=== PATIENT | female | born 1960 | race African-American/Black ===

== ENCOUNTER 2021-11-13 00:25 | Inpatient (IN) | payer MEDICAID ==
[2021-11-13] VITALS (26 sets, daily range): BP systolic 115–174; BP diastolic 61–112
[~2021-11-13] VITALS: Ht 167.6 cm; Wt 111.6 kg
[2021-11-13] MEDS ORDERED: PIPERACILLIN/TAZOBACTAM 3.375GM/50ML PREMIX IV ONE (00:45)
[2021-11-13] MEDS ORDERED: FENTANYL CITRATE/PF 500 MCG in SODIUM CHLORIDE 0.9% 40 ML IV STA (00:45)
[2021-11-13] MEDS ORDERED: VANCOMYCIN 1 G PREMIX 200 ML IV SCH (00:45)
[2021-11-13] MEDS ORDERED: MAGNESIUM 2 G PREMIX 50 ML IV STA (00:54)
[2021-11-13] MEDS ORDERED: ALBUTEROL (0.083%) 2.5MG/3ML NEB HHN STA (00:54)
[2021-11-13] MEDS ORDERED: IPRATROPIUM BROMIDE (0.02%) 0.5MG/2.5ML NEB HHN STA (00:54)
[2021-11-13] MEDS ORDERED: FENTANYL CITRATE 2,500 MCG in SODIUM CHLORIDE 0.9% 200 ML IV PRN (01:00)
[2021-11-13] MEDS ORDERED: METHYLPREDNISOLONE SOD SUCC 125 MG/2 ML VIAL IV ONE (01:00)
[2021-11-13] MEDS ORDERED: PIPERACILLIN/TAZ 3.375G PREMIX 50 ML IV NR (01:00)
[2021-11-13] MEDS ORDERED: SODIUM CHLORIDE 0.9% 1000ML BAG (SEPSIS BOLUS) IV ONE (01:00)
[2021-11-13] MEDS ORDERED: ALBUTEROL (0.083%) 2.5MG/3ML NEB ONE (01:06)
[2021-11-13] MEDS ORDERED: IPRATROPIUM/ALBUTEROL 0.5-3(2.5)MG/3ML NEB ONE (01:06)
[2021-11-13] MEDS: PROPOFOL 10MG/ML 100ML 100 ML IV SCH ×3 (01:06→16:33)
[2021-11-13 01:39] LABS: BG BASE EXCESS -3.4 mmol/L (-2.0-2.0); BG CARBOXYHEMOGLOBIN 0.3 % (0.5-1.5); BG DEOXYHEMOGLOBIN 0.4 % (0.0-5.0); BG FRACTION INSPIRED OXYGEN 100; BG HCO3 ACT 21.8 mmol/L (22.0-26.0); BG METHEMOGLOBIN 0.4 % (0.0-1.5); BG OXYGEN SATURATION 99.6 % (92.0-98.5); BG OXYHEMOGLOBIN 98.9 % (94.0-97.0); BG PCO2 39.4 mmHg (35.0-45.0); BG PO2 480.6 mmHg (75.0-100.0); BG SAMPLE SITE RIGHT RADIAL; BG TOTAL HEMOGLOBIN 10.8 g/dL (12.0-18.0); BG VENT MODE VENT - AC
[2021-11-13 01:48] LABS: BASOPHILS % 1.1 % (0.0-2.0); EOSINOPHILS % 6.2 % (0.0-5.0); HEMATOCRIT. 30.4 % (36.0-48.0); LYMPHOCYTES % 31.8 % (20.0-50.0); MEAN CORPUSCULAR HEMOGLOBIN 30.4 pg (28.0-32.0); MEAN PLATELET VOLUME 7.7 fl (7.4-10.4); MONOCYTES % 10.4 % (2.0-8.0); NEUTROPHILS % 50.5 % (40.0-76.0); PLATELET 226 x1000/uL (130-400); RED BLOOD CELL COUNT 3.31 mill/uL (4.2-5.4); RED CELL DISTRIBUTION WIDTH 14.8 % (11.6-14.6)
[2021-11-13 01:55] LABS: CHLORIDE 108 mEq/L (98-107)
[2021-11-13 01:59] LABS: ETHANOL BLOOD < 10 mg/dL
[2021-11-13] MEDS ORDERED: POTASSIUM CHLORIDE INJ 40 MEQ in DEXT 5% WATER 250 ML IV NR (02:45)
[2021-11-13] MEDS ORDERED: ENOXAPARIN 100MG/ML SYR SUBCUT NR (03:00)
[2021-11-13] MEDS ORDERED: BLOOD SUGAR DIAGNOSTIC STRIP TEST SCH (05:15)
[2021-11-13] MEDS ORDERED: IPRATROPIUM/ALBUTEROL 0.5-3(2.5)MG/3ML NEB HHN SCH (05:15)
[2021-11-13] MEDS ORDERED: ACETAMINOPHEN 325MG TABLET NG PRN (05:15)
[2021-11-13] MEDS ORDERED: ONDANSETRON HCL 4MG/2ML INJ IV PRN (05:15)
[2021-11-13] MEDS ORDERED: LEVOFLOXACIN 500MG PREMIX 100 ML IV SCH ×2 (05:15→06:00)
[2021-11-13] MEDS ORDERED: NICARDIPINE 100 MG in SODIUM CHLORIDE 0.9% 60 ML IV PRN (05:15)
[2021-11-13] MEDS ORDERED: IPRATROPIUM/ALBUTEROL 0.5-3(2.5)MG/3ML NEB NEB PRN (05:15)
[2021-11-13] MEDS ORDERED: DEXTROSE 50% WATER 50ML SYRINGE IV PRN (05:15)
[2021-11-13] MEDS ORDERED: IOHEXOL-350 100 ML BOTTLE ONE ×2 (05:47→12:06)
[2021-11-13] MEDS ORDERED: INSULIN LISPRO 100 UNITS/ML SUBCUT SCH (08:20)
[2021-11-13] MEDS ORDERED: CALCIUM CHLORIDE 1GM/10ML SYR IV ONE (08:39)
[2021-11-13] MEDS ORDERED: SODIUM BICARBONATE 8.4% 1 MEQ/ML 50ML SYR IV ONE (08:39)
[2021-11-13] MEDS ORDERED: EPINEPHRINE 0.1MG/ML (1:10,000) 10ML SYR ONE (08:39)
[2021-11-13] MEDS ORDERED: PANTOPRAZOLE SODIUM 40 MG/VIAL IV SCH (09:00)
[2021-11-13] MEDS ORDERED: LIDOCAINE HCL 1% 20ML VIAL (Pyxis) INJ ONE ×2 (09:03→09:43)
[2021-11-13 09:06] LABS: CLARITY URINE CLEAR (CLEAR); COLOR URINE YELLOW (YELLOW); KETONES URINE NEGATIVE (NEGATIVE); LEUKOCYTE ESTERASE URINE NEGATIVE (NEGATIVE); NITRITE URINE NEGATIVE (NEGATIVE); OCCULT BLOOD URINE 2+ (NEGATIVE); PH URINE 6.5 (4.5-8.0); PROTEIN URINE TRACE (NEGATIVE); SPECIFIC GRAVITY URINE 1.017 (1.005-1.030); UROBILINOGEN URINE 0.2 E.U./dL (0.2-1.0)
[2021-11-13 09:15] LABS: *AMPHETAMINES SCREEN URINE NEGATIVE (NEGATIVE); *BARBITURATES SCREEN URINE NEGATIVE (NEGATIVE); *BENZODIAZEPINES SCREEN URINE NEGATIVE (NEGATIVE); CANNABINOID URINE SCREEN NEGATIVE (NEGATIVE); METHADONE URINE SCREEN NEGATIVE (NEGATIVE)
[2021-11-13 09:16] LABS: *COCAINE SCREEN URINE NEGATIVE (NEGATIVE); OPIATES URINE SCREEN NEGATIVE (NEGATIVE); PHENCYCLIDINE URINE SCREEN NEGATIVE (NEGATIVE)
[2021-11-13] MEDS ORDERED: FENTANYL CITRATE/PF 2,500 MCG in SODIUM CHLORIDE 0.9% 200 ML IV PRN (10:00)
[2021-11-13] MEDS: METHYLPREDNISOLONE SOD SUCC 125 MG/2 ML VIAL IV SCH ×3 (10:11→21:15)
[2021-11-13] MEDS: INSULIN LISPRO 100 UNITS/ML SUBCUT SCH ×2 (12:00→18:00)
[2021-11-13] MEDS: LORATADINE 10MG TABLET PO SCH (12:12)
[2021-11-13] MEDS: FAMOTIDINE 20MG/2ML VIAL IV SCH ×2 (12:12→21:16)
[2021-11-13] MEDS: RITONAVIR 100 MG TABLET NG SCH ×2 (12:12→16:10)
[2021-11-13] MEDS: LOSARTAN POTASSIUM 100 MG TABLET NG SCH (12:12)
[2021-11-13] MEDS: BLOOD SUGAR DIAGNOSTIC STRIP TEST SCH ×2 (12:39→18:30)
[2021-11-13] MEDS ORDERED: PNEUMOCOCCAL 23-VAL P-SAC VAC 0.5 ML IM ONE (15:00)
[2021-11-13 15:45] LABS: HEMATOCRIT. 31.7 % (36.0-48.0); HEMOGLOBIN. 10.6 g/dL (12.0-16.0); MEAN CORPUSCULAR HEMOGLOBIN 30.7 pg (28.0-32.0); MEAN CORPUSCULAR VOLUME 91.5 fL (81.0-99.0); MEAN PLATELET VOLUME 9.1 fl (7.4-10.4); PLATELET 200 x1000/uL (130-400); RED BLOOD CELL COUNT 3.47 mill/uL (4.2-5.4)
[2021-11-13 15:59] LABS: CHLORIDE 106 mEq/L (98-107)
[2021-11-13] MEDS: ATENOLOL 50 MG TABLET NG SCH (16:10)
[2021-11-13] MEDS ORDERED: POTASSIUM CHLORIDE 20MEQ/PACKET PO NR (16:45)
[2021-11-13] MEDS: FENTANYL CITRATE/PF 2,500 MCG in SODIUM CHLORIDE 0.9% 200 ML IV PRN (17:23)
[2021-11-13 17:37] LABS: PLATELET ESTIMATE NORMAL
[2021-11-13] MEDS ORDERED: POTASSIUM PHOS,M-BASIC-D-BASIC 20 MMOL in DEXT 5% WATER 243.3333 ML IV NR (18:30)
[2021-11-13] MEDS ORDERED: LORAZEPAM 2MG/ML CPJ IV PRN (19:00)
[2021-11-13] MEDS: ENOXAPARIN 30MG/0.3ML SYR SUBCUT SCH (21:15)
[2021-11-13] MEDS: PROPOFOL 10MG/ML 100ML 100 ML IV PRN (21:17)
[2021-11-13] MEDS: CLONIDINE 0.1MG TABLET NG PRN (21:18)
[2021-11-13] MEDS: IPRATROPIUM/ALBUTEROL 0.5-3(2.5)MG/3ML NEB HHN SCH (21:37)
[2021-11-14] VITALS (76 sets, daily range): BP systolic 118–165; BP diastolic 69–105
[2021-11-14] MEDS: BLOOD SUGAR DIAGNOSTIC STRIP TEST SCH ×5 (00:33→23:52)
[2021-11-14] MEDS: IPRATROPIUM/ALBUTEROL 0.5-3(2.5)MG/3ML NEB HHN SCH ×7 (00:46→23:40)
[2021-11-14] MEDS: PROPOFOL 10MG/ML 100ML 100 ML IV PRN ×4 (02:25→20:19)
[2021-11-14] MEDS: CLONIDINE 0.1MG TABLET NG PRN (03:49)
[2021-11-14] MEDS ORDERED: NICARDIPINE 100 MG in SODIUM CHLORIDE 0.9% 60 ML IV PRN (05:00)
[2021-11-14] MEDS: METHYLPREDNISOLONE SOD SUCC 125 MG/2 ML VIAL IV SCH ×3 (05:02→21:55)
[2021-11-14] MEDS: INSULIN LISPRO 100 UNITS/ML SUBCUT SCH ×4 (05:02→18:00)
[2021-11-14 05:58] LABS: CHLORIDE 108 mEq/L (98-107)
[2021-11-14 06:09] LABS: PHOSPHORUS 4.1 mg/dL (2.5-4.9)
[2021-11-14] MEDS: FENTANYL CITRATE/PF 2,500 MCG in SODIUM CHLORIDE 0.9% 200 ML IV PRN ×2 (06:54→21:57)
[2021-11-14] MEDS ORDERED: ETOMIDATE 2MG/ML 10ML VIAL IV ONE (08:06)
[2021-11-14] MEDS ORDERED: SUCCINYLCHOLINE CHLORIDE 200MG/10ML IV ONE (08:06)
[2021-11-14] MEDS: ENOXAPARIN 30MG/0.3ML SYR SUBCUT SCH ×2 (08:21→20:45)
[2021-11-14] MEDS: FAMOTIDINE 20MG/2ML VIAL IV SCH ×2 (08:21→20:45)
[2021-11-14] MEDS: LORATADINE 10MG TABLET PO SCH (08:21)
[2021-11-14] MEDS: LOSARTAN POTASSIUM 100 MG TABLET NG SCH (08:21)
[2021-11-14] MEDS: ATENOLOL 50 MG TABLET NG SCH (08:21)
[2021-11-14] MEDS: LEVOFLOXACIN 500MG PREMIX 100 ML IV SCH (10:31)
[2021-11-14] MEDS: DEXT 5%/0.45% NACL 1000ML 1,000 ML IV SCH ×2 (10:32→20:45)
[2021-11-14 10:39] LABS: BG BASE EXCESS -3.7 mmol/L (-2.0-2.0); BG CARBOXYHEMOGLOBIN 0.3 % (0.5-1.5); BG DEOXYHEMOGLOBIN 1.2 % (0.0-5.0); BG FRACTION INSPIRED OXYGEN 30; BG HCO3 ACT 18.9 mmol/L (22.0-26.0); BG METHEMOGLOBIN 0.2 % (0.0-1.5); BG OXYGEN SATURATION 98.8 % (92.0-98.5); BG OXYHEMOGLOBIN 98.3 % (94.0-97.0); BG PCO2 27.1 mmHg (35.0-45.0); BG PEEP (cmH2O) 0 cmH2O; BG PH 7.462 (7.350-7.450); BG PO2 141.5 mmHg (75.0-100.0); BG SAMPLE SITE RIGHT RADIAL; BG TOTAL HEMOGLOBIN 11.2 g/dL (12.0-18.0); BG TOTAL RESPIRATORY RATE 20 b/min; BG VENT MODE PRVC
[2021-11-14] MEDS: RITONAVIR 100 MG TABLET NG SCH ×2 (11:27→17:59)
[2021-11-14] MEDS ORDERED: NON FORMULARY PATIENT HOME MED PO SCH ×3 (13:15)
[2021-11-14] MEDS: JULUCA PO SCH (15:31)
[2021-11-14] MEDS: LACOSAMIDE 100 MG TABLET PO SCH (17:59)
[2021-11-14] MEDS: PREZISTA 600 MG PO SCH (18:00)
[2021-11-14] MEDS: TOPIRAMATE 25MG TABLET PO SCH (18:00)
[2021-11-15] VITALS (94 sets, daily range): BP systolic 109–159; BP diastolic 64–100
[2021-11-15] MEDS: INSULIN LISPRO 100 UNITS/ML SUBCUT SCH ×6 (00:06→23:44)
[2021-11-15] MEDS: PROPOFOL 10MG/ML 100ML 100 ML IV PRN ×3 (00:54→10:19)
[2021-11-15] MEDS: IPRATROPIUM/ALBUTEROL 0.5-3(2.5)MG/3ML NEB HHN SCH ×5 (03:05→21:42)
[2021-11-15 05:34] LABS: HEMATOCRIT. 33.3 % (36.0-48.0); HEMOGLOBIN. 10.7 g/dL (12.0-16.0); MEAN CORPUSCULAR HEMOGLOBIN 29.4 pg (28.0-32.0); MEAN CORPUSCULAR VOLUME 91.5 fL (81.0-99.0); MEAN PLATELET VOLUME 8.2 fl (7.4-10.4); PLATELET 236 x1000/uL (130-400); RED BLOOD CELL COUNT 3.64 mill/uL (4.2-5.4); RED CELL DISTRIBUTION WIDTH 15.2 % (11.6-14.6)
[2021-11-15 05:39] LABS: CHLORIDE 115 mEq/L (98-107)
[2021-11-15 05:47] LABS: PROTHROMBIN TIME 10.6 sec (9.6-11.0)
[2021-11-15] MEDS: METHYLPREDNISOLONE SOD SUCC 125 MG/2 ML VIAL IV SCH ×3 (06:57→22:01)
[2021-11-15] MEDS: DEXT 5%/0.45% NACL 1000ML 1,000 ML IV SCH ×2 (07:15→13:48)
[2021-11-15] MEDS: RITONAVIR 100 MG TABLET NG SCH ×2 (09:00→11:57)
[2021-11-15] MEDS: TOPIRAMATE 25MG TABLET PO SCH ×2 (09:18→17:00)
[2021-11-15] MEDS: LOSARTAN POTASSIUM 100 MG TABLET NG SCH (09:18)
[2021-11-15] MEDS: LACOSAMIDE 100 MG TABLET PO SCH ×2 (09:18→17:00)
[2021-11-15] MEDS: ATENOLOL 50 MG TABLET NG SCH (09:19)
[2021-11-15] MEDS: FAMOTIDINE 20MG/2ML VIAL IV SCH ×2 (09:19→22:03)
[2021-11-15] MEDS: JULUCA PO SCH (09:19)
[2021-11-15] MEDS: PREZISTA 600 MG PO SCH ×2 (09:20→17:00)
[2021-11-15] MEDS: ENOXAPARIN 30MG/0.3ML SYR SUBCUT SCH ×2 (09:26→22:02)
[2021-11-15] MEDS: LORATADINE 10MG TABLET PO SCH (09:26)
[2021-11-15] MEDS: LEVOFLOXACIN 500MG PREMIX 100 ML IV SCH (09:27)
[2021-11-15 09:30] LABS: BG BASE EXCESS -3.4 mmol/L (-2.0-2.0); BG CARBOXYHEMOGLOBIN 0.3 % (0.5-1.5); BG DEOXYHEMOGLOBIN 1.4 % (0.0-5.0); BG FRACTION INSPIRED OXYGEN 30; BG HCO3 ACT 19.4 mmol/L (22.0-26.0); BG METHEMOGLOBIN 0.1 % (0.0-1.5); BG OXYGEN SATURATION 98.6 % (92.0-98.5); BG OXYHEMOGLOBIN 98.2 % (94.0-97.0); BG PCO2 27.9 mmHg (35.0-45.0); BG PEEP (cmH2O) 0 cmH2O; BG PO2 133.5 mmHg (75.0-100.0); BG SAMPLE SITE RIGHT RADIAL; BG TOTAL HEMOGLOBIN 11.1 g/dL (12.0-18.0); BG VENT MODE PRVC
[2021-11-15] MEDS: FENTANYL CITRATE/PF 2,500 MCG in SODIUM CHLORIDE 0.9% 200 ML IV PRN ×2 (10:19→23:47)
[2021-11-15] MEDS: BLOOD SUGAR DIAGNOSTIC STRIP TEST SCH ×2 (11:44→23:41)
[2021-11-15 15:40] LABS: PLATELET ESTIMATE NORMAL
[2021-11-15] MEDS: MIDAZOLAM HCL 100 MG in SODIUM CHLORIDE 0.9% 80 ML IV PRN (17:04)
[2021-11-16] VITALS (90 sets, daily range): BP systolic 113–155; BP diastolic 74–107
[2021-11-16] MEDS: DEXT 5%/0.45% NACL 1000ML 1,000 ML IV SCH ×3 (00:03→22:42)
[2021-11-16] MEDS: IPRATROPIUM/ALBUTEROL 0.5-3(2.5)MG/3ML NEB HHN SCH ×6 (01:45→20:34)
[2021-11-16] MEDS: MIDAZOLAM HCL 100 MG in SODIUM CHLORIDE 0.9% 80 ML IV PRN (04:39)
[2021-11-16] MEDS: INSULIN LISPRO 100 UNITS/ML SUBCUT SCH ×3 (06:00→17:42)
[2021-11-16] MEDS: BLOOD SUGAR DIAGNOSTIC STRIP TEST SCH ×3 (06:00→17:42)
[2021-11-16] MEDS: METHYLPREDNISOLONE SOD SUCC 125 MG/2 ML VIAL IV SCH ×3 (06:53→22:23)
[2021-11-16] MEDS: FAMOTIDINE 20MG/2ML VIAL IV SCH ×2 (08:13→22:23)
[2021-11-16] MEDS: PREZISTA 600 MG PO SCH ×2 (08:13→17:17)
[2021-11-16] MEDS: JULUCA PO SCH (08:13)
[2021-11-16] MEDS: LORATADINE 10MG TABLET PO SCH (08:14)
[2021-11-16] MEDS: TOPIRAMATE 25MG TABLET PO SCH ×2 (08:14→17:17)
[2021-11-16] MEDS: LOSARTAN POTASSIUM 100 MG TABLET NG SCH (08:14)
[2021-11-16] MEDS: ATENOLOL 50 MG TABLET NG SCH (08:16)
[2021-11-16] MEDS: RITONAVIR 100 MG TABLET NG SCH ×2 (08:20→17:17)
[2021-11-16] MEDS: LACOSAMIDE 100 MG TABLET PO SCH ×2 (08:26→17:17)
[2021-11-16] MEDS: ENOXAPARIN 30MG/0.3ML SYR SUBCUT SCH ×2 (08:26→22:24)
[2021-11-16 08:38] LABS: BG CARBOXYHEMOGLOBIN 0.2 % (0.5-1.5); BG DEOXYHEMOGLOBIN 1.4 % (0.0-5.0); BG FRACTION INSPIRED OXYGEN 30; BG HCO3 ACT 19.2 mmol/L (22.0-26.0); BG METHEMOGLOBIN 0.3 % (0.0-1.5); BG OXYGEN SATURATION 98.6 % (92.0-98.5); BG OXYHEMOGLOBIN 98.1 % (94.0-97.0); BG PCO2 29.3 mmHg (35.0-45.0); BG PH 7.435 (7.350-7.450); BG TOTAL HEMOGLOBIN 11.1 g/dL (12.0-18.0); BG VENT MODE PRVC
[2021-11-16 08:59] LABS: CHLORIDE 119 mEq/L (98-107)
[2021-11-16 09:01] LABS: HEMATOCRIT. 32.9 % (36.0-48.0); HEMOGLOBIN. 10.8 g/dL (12.0-16.0); MEAN CORPUSCULAR HEMOGLOBIN 30.5 pg (28.0-32.0); MEAN CORPUSCULAR VOLUME 92.9 fL (81.0-99.0); MEAN PLATELET VOLUME 8.3 fl (7.4-10.4); PLATELET 222 x1000/uL (130-400); RED BLOOD CELL COUNT 3.54 mill/uL (4.2-5.4); RED CELL DISTRIBUTION WIDTH 15.4 % (11.6-14.6)
[2021-11-16] MEDS: LEVOFLOXACIN 500MG PREMIX 100 ML IV SCH (09:38)
[2021-11-16 09:39] LABS: PLATELET ESTIMATE NORMAL
[2021-11-17] VITALS (81 sets, daily range): BP systolic 78–172; BP diastolic 36–103
[2021-11-17] MEDS: IPRATROPIUM/ALBUTEROL 0.5-3(2.5)MG/3ML NEB HHN SCH ×6 (00:20→20:16)
[2021-11-17] MEDS: HYDRALAZINE 20MG/ML VIAL IV PRN (01:59)
[2021-11-17] MEDS: METHYLPREDNISOLONE SOD SUCC 125 MG/2 ML VIAL IV SCH ×3 (05:50→21:18)
[2021-11-17] MEDS: BLOOD SUGAR DIAGNOSTIC STRIP TEST SCH ×5 (06:00→23:13)
[2021-11-17] MEDS: INSULIN LISPRO 100 UNITS/ML SUBCUT SCH ×5 (06:00→23:13)
[2021-11-17 06:20] LABS: CHLORIDE 118 mEq/L (98-107); HEMATOCRIT. 34.9 % (36.0-48.0); HEMOGLOBIN. 11.2 g/dL (12.0-16.0); MEAN CORPUSCULAR HEMOGLOBIN 29.7 pg (28.0-32.0); MEAN CORPUSCULAR VOLUME 92.7 fL (81.0-99.0); MEAN PLATELET VOLUME 8.3 fl (7.4-10.4); PLATELET 244 x1000/uL (130-400); RED BLOOD CELL COUNT 3.77 mill/uL (4.2-5.4); RED CELL DISTRIBUTION WIDTH 15.6 % (11.6-14.6)
[2021-11-17 08:36] LABS: BG BASE EXCESS -6.7 mmol/L (-2.0-2.0); BG CARBOXYHEMOGLOBIN 0.3 % (0.5-1.5); BG DEOXYHEMOGLOBIN 1.2 % (0.0-5.0); BG FRACTION INSPIRED OXYGEN 30; BG HCO3 ACT 19.7 mmol/L (22.0-26.0); BG METHEMOGLOBIN 0.2 % (0.0-1.5); BG OXYGEN SATURATION 98.8 % (92.0-98.5); BG OXYHEMOGLOBIN 98.3 % (94.0-97.0); BG PCO2 42.7 mmHg (35.0-45.0); BG PH 7.281 (7.350-7.450); BG PO2 155.3 mmHg (75.0-100.0); BG SAMPLE SITE RIGHT RADIAL; BG TOTAL RESPIRATORY RATE 16 b/min; BG VENT MODE VENT- PRVC
[2021-11-17] MEDS: ENOXAPARIN 30MG/0.3ML SYR SUBCUT SCH ×2 (08:55→20:12)
[2021-11-17] MEDS: TOPIRAMATE 25MG TABLET PO SCH ×2 (08:55→16:52)
[2021-11-17] MEDS: LACOSAMIDE 100 MG TABLET PO SCH ×2 (08:55→16:52)
[2021-11-17] MEDS: FAMOTIDINE 20MG/2ML VIAL IV SCH ×2 (08:56→20:12)
[2021-11-17] MEDS: RITONAVIR 100 MG TABLET NG SCH ×2 (08:56→16:52)
[2021-11-17] MEDS: LORATADINE 10MG TABLET PO SCH (08:56)
[2021-11-17] MEDS: ATENOLOL 50 MG TABLET NG SCH (08:57)
[2021-11-17] MEDS: JULUCA PO SCH (08:57)
[2021-11-17] MEDS: PREZISTA 600 MG PO SCH ×2 (08:57→16:52)
[2021-11-17] MEDS: DEXT 5%/0.45% NACL 1000ML 1,000 ML IV SCH (08:58)
[2021-11-17] MEDS: LOSARTAN POTASSIUM 100 MG TABLET NG SCH (08:58)
[2021-11-17] MEDS ORDERED: POTASSIUM CHLORIDE 20MEQ/PACKET PO NR (09:00)
[2021-11-17 10:09] LABS: ABSOLUTE LYMPHOCYTES 0.5 x10E3/uL (0.7-3.1); ABSOLUTE MONOCYTES 0.4 x10E3/uL (0.1-0.9); ABSOLUTE NEUTROPHILS 7.8 x10E3/uL (1.4-7.0); BASOPHILS 0 % (Not Estab.); HEMATOCRIT 33.3 % (34.0-46.6); HEMOGLOBIN 10.7 g/dL (11.1-15.9); IMMATURE GRANULOCYTES 1 % (Not Estab.); IMMATURE GRANULOCYTES ABSOLUTE 0.1 x10E3/uL (0.0-0.1); LYMPHOCYTES 5 % (Not Estab.); MEAN CORPUSCULAR HEMOGLOBIN 30.2 pg (26.6-33.0); MEAN CORPUSCULAR HGB CONC. 32.1 g/dL (31.5-35.7); MEAN CORPUSCULAR VOLUME 94 fL (79-97); MONOCYTES 5 % (Not Estab.); NEUTROPHILS 89 % (Not Estab.); PLATELETS 229 x10E3/uL (150-450); RBC 3.54 x10E6/uL (3.77-5.28); RED CELL DISTRIBUTION WIDTH 13.3 % (11.7-15.4); WBC 8.7 x10E3/uL (3.4-10.8)
[2021-11-17] MEDS: LEVOFLOXACIN 500MG PREMIX 100 ML IV SCH (10:46)
[2021-11-17 13:06] LABS: % CD 3 POS. LYMPHOCYTES 51.4 % (57.5-86.2); % CD 4 POS. LYMPHOCYTES 28.2 % (30.8-58.5); % CD 8 POS. LYMPH 22.5 % (12.0-35.5); ABSOLUTE CD 3 257 /uL (622-2402); ABSOLUTE CD 4 HELPER 141 /uL (359-1519); ABSOLUTE CD 8 SUPPRESSOR 113 /uL (109-897); CD4/CD8 RATIO 1.25 (0.92-3.72)
[2021-11-17] MEDS: CITRIC ACID/SODIUM CITRATE SOLN 15ML UDC NG SCH ×2 (13:38→16:52)
[2021-11-17] MEDS: MIDODRINE HCL 5MG TABLET PO SCH ×2 (13:39→21:18)
[2021-11-17] MEDS ORDERED: NOREPINEPHRINE 32 MG in DEXT 5% WATER 218 ML IV PRN (14:00)
[2021-11-17 14:13] LABS: PLATELET ESTIMATE NORMAL
[2021-11-17 15:14] LABS: BG BASE EXCESS -7.8 mmol/L (-2.0-2.0); BG CARBOXYHEMOGLOBIN 0.3 % (0.5-1.5); BG DEOXYHEMOGLOBIN 2.7 % (0.0-5.0); BG FRACTION INSPIRED OXYGEN 30; BG HCO3 ACT 19.7 mmol/L (22.0-26.0); BG METHEMOGLOBIN 0.3 % (0.0-1.5); BG OXYGEN SATURATION 97.3 % (92.0-98.5); BG OXYHEMOGLOBIN 96.7 % (94.0-97.0); BG PCO2 47.8 mmHg (35.0-45.0); BG PH 7.232 (7.350-7.450); BG PO2 109.1 mmHg (75.0-100.0); BG SAMPLE SITE RIGHT RADIAL; BG TOTAL RESPIRATORY RATE 12 b/min; BG VENT MODE VENT - SIMV
[2021-11-17] MEDS ORDERED: SODIUM BICARBONATE 8.4% 1 MEQ/ML 50ML SYR IV NR (15:15)
[2021-11-17 16:10] LABS: CLARITY URINE CLOUDY (CLEAR); COLOR URINE DARK YELLOW (YELLOW); KETONES URINE NEGATIVE (NEGATIVE); LEUKOCYTE ESTERASE URINE TRACE (NEGATIVE); NITRITE URINE NEGATIVE (NEGATIVE); OCCULT BLOOD URINE 1+ (NEGATIVE); PH URINE 5.5 (4.5-8.0); PROTEIN URINE 2+ (NEGATIVE); SPECIFIC GRAVITY URINE 1.021 (1.005-1.030); UROBILINOGEN URINE 0.2 E.U./dL (0.2-1.0)
[2021-11-17] MEDS: SODIUM BICARBONATE 100 MEQ in SODIUM CHLORIDE 0.45% 1,000 ML IV SCH (16:52)
[2021-11-17] MEDS ORDERED: SULFAMETHOXAZOLE/TRIMETHOPRIM 200-40 MG/5ML 5ML ORAL SYR PO SCH (20:00)
[2021-11-17] MEDS ORDERED: VANCOMYCIN 1500MG in DEXTROSE 5% WATER 250ML IV NR (20:00)
[2021-11-17] MEDS: MEROPENEM 1,000 MG in SODIUM CHLORIDE 0.9% 100 ML IV SCH (20:12)
[2021-11-18] VITALS (66 sets, daily range): BP systolic 86–182; BP diastolic 53–106
[2021-11-18] MEDS: IPRATROPIUM/ALBUTEROL 0.5-3(2.5)MG/3ML NEB HHN SCH ×6 (00:30→20:41)
[2021-11-18] MEDS: SODIUM BICARBONATE 100 MEQ in SODIUM CHLORIDE 0.45% 1,000 ML IV SCH ×2 (03:00→14:57)
[2021-11-18] MEDS: BLOOD SUGAR DIAGNOSTIC STRIP TEST SCH ×4 (05:01→23:19)
[2021-11-18] MEDS: INSULIN LISPRO 100 UNITS/ML SUBCUT SCH ×4 (05:02→23:19)
[2021-11-18] MEDS: METHYLPREDNISOLONE SOD SUCC 125 MG/2 ML VIAL IV SCH ×3 (05:19→21:32)
[2021-11-18] MEDS: MIDODRINE HCL 5MG TABLET PO SCH ×2 (05:19→14:57)
[2021-11-18 06:18] LABS: HEMOGLOBIN. 10.9 g/dL (12.0-16.0); MEAN CORPUSCULAR HEMOGLOBIN 30.6 pg (28.0-32.0); MEAN CORPUSCULAR VOLUME 92.9 fL (81.0-99.0); MEAN PLATELET VOLUME 8.4 fl (7.4-10.4); PLATELET 241 x1000/uL (130-400); RED BLOOD CELL COUNT 3.56 mill/uL (4.2-5.4); RED CELL DISTRIBUTION WIDTH 15.7 % (11.6-14.6)
[2021-11-18 06:24] LABS: CHLORIDE 113 mEq/L (98-107)
[2021-11-18 06:31] LABS: PHOSPHORUS 5.2 mg/dL (2.5-4.9)
[2021-11-18] MEDS ORDERED: VANCOMYCIN 750 MG PREMIX 150 ML IV SCH (08:00)
[2021-11-18 08:26] LABS: BG BASE EXCESS -4.5 mmol/L (-2.0-2.0); BG CARBOXYHEMOGLOBIN 0.3 % (0.5-1.5); BG DEOXYHEMOGLOBIN 2.3 % (0.0-5.0); BG FRACTION INSPIRED OXYGEN 30; BG HCO3 ACT 21.2 mmol/L (22.0-26.0); BG METHEMOGLOBIN 0.1 % (0.0-1.5); BG OXYGEN SATURATION 97.7 % (92.0-98.5); BG OXYHEMOGLOBIN 97.3 % (94.0-97.0); BG PCO2 41.7 mmHg (35.0-45.0); BG PH 7.324 (7.350-7.450); BG PO2 106.7 mmHg (75.0-100.0); BG SAMPLE SITE RIGHT RADIAL; BG TOTAL HEMOGLOBIN 10.7 g/dL (12.0-18.0); BG VENT MODE VENT - SIMV
[2021-11-18] MEDS: LORATADINE 10MG TABLET PO SCH (09:00)
[2021-11-18] MEDS: TOPIRAMATE 25MG TABLET PO SCH ×2 (09:00→17:00)
[2021-11-18] MEDS: MEROPENEM 1,000 MG in SODIUM CHLORIDE 0.9% 100 ML IV SCH ×2 (11:26→11:27)
[2021-11-18] MEDS: FAMOTIDINE 20MG/2ML VIAL IV SCH (11:29)
[2021-11-18] MEDS: CITRIC ACID/SODIUM CITRATE SOLN 15ML UDC NG SCH ×2 (11:29→14:58)
[2021-11-18] MEDS: LOSARTAN POTASSIUM 100 MG TABLET NG SCH (11:30)
[2021-11-18] MEDS: ENOXAPARIN 30MG/0.3ML SYR SUBCUT SCH (11:31)
[2021-11-18] MEDS: RITONAVIR 100 MG TABLET NG SCH ×2 (11:33→18:30)
[2021-11-18] MEDS: PREZISTA 600 MG PO SCH ×2 (11:33→18:29)
[2021-11-18] MEDS: JULUCA PO SCH (11:33)
[2021-11-18 11:35] LABS: PLATELET ESTIMATE NORMAL
[2021-11-18] MEDS: ATENOLOL 50 MG TABLET NG SCH (11:48)
[2021-11-18] MEDS: LACOSAMIDE 100 MG TABLET PO SCH ×2 (11:48→18:30)
[2021-11-19] VITALS (40 sets, daily range): BP systolic 118–191; BP diastolic 59–133
[2021-11-19] MEDS: IPRATROPIUM/ALBUTEROL 0.5-3(2.5)MG/3ML NEB HHN SCH ×6 (00:44→20:03)
[2021-11-19] MEDS: SODIUM BICARBONATE 100 MEQ in SODIUM CHLORIDE 0.45% 1,000 ML IV SCH (01:15)
[2021-11-19] MEDS: CLONIDINE 0.1MG TABLET NG PRN ×2 (01:36→22:33)
[2021-11-19] MEDS: HYDRALAZINE 20MG/ML VIAL IV PRN ×3 (03:14→19:48)
[2021-11-19] MEDS: BLOOD SUGAR DIAGNOSTIC STRIP TEST SCH ×4 (05:43→23:38)
[2021-11-19] MEDS: METHYLPREDNISOLONE SOD SUCC 125 MG/2 ML VIAL IV SCH ×3 (05:43→21:55)
[2021-11-19] MEDS: INSULIN LISPRO 100 UNITS/ML SUBCUT SCH ×4 (05:43→23:44)
[2021-11-19] MEDS: ATOVAQUONE 750 MG/5 ML ORAL.SUSP NG SCH (08:20)
[2021-11-19 08:33] LABS: BG BASE EXCESS 4.5 mmol/L (-2.0-2.0); BG DEOXYHEMOGLOBIN 2.4 % (0.0-5.0); BG FRACTION INSPIRED OXYGEN 30; BG HCO3 ACT 29.1 mmol/L (22.0-26.0); BG METHEMOGLOBIN 0.4 % (0.0-1.5); BG OXYGEN SATURATION 97.6 % (92.0-98.5); BG OXYHEMOGLOBIN 97.2 % (94.0-97.0); BG PCO2 43.8 mmHg (35.0-45.0); BG PH 7.441 (7.350-7.450); BG PO2 100.7 mmHg (75.0-100.0); BG SAMPLE SITE RIGHT RADIAL; BG TOTAL HEMOGLOBIN 11.9 g/dL (12.0-18.0); BG VENT MODE VENT - SIMV
[2021-11-19] MEDS: MEROPENEM 1,000 MG in SODIUM CHLORIDE 0.9% 100 ML IV SCH ×2 (09:13→21:55)
[2021-11-19] MEDS: TOPIRAMATE 25MG TABLET PO SCH ×2 (09:14→16:54)
[2021-11-19] MEDS: ATENOLOL 50 MG TABLET NG SCH (09:15)
[2021-11-19] MEDS: ENOXAPARIN 40MG/0.4ML SYR SUBCUT SCH (09:15)
[2021-11-19] MEDS: LORATADINE 10MG TABLET PO SCH (09:15)
[2021-11-19] MEDS: FAMOTIDINE 20MG/2ML VIAL IV SCH (09:29)
[2021-11-19] MEDS: LACOSAMIDE 100 MG TABLET PO SCH ×2 (09:29→16:55)
[2021-11-19] MEDS: PREZISTA 600 MG PO SCH ×2 (09:49→16:54)
[2021-11-19] MEDS: RITONAVIR 100 MG TABLET NG SCH ×2 (09:49→16:55)
[2021-11-19] MEDS: JULUCA PO SCH (09:49)
[2021-11-19] MEDS ORDERED: VANCOMYCIN 1 G PREMIX 200 ML IV NR (10:00)
[2021-11-19 13:08] LABS: BG BASE EXCESS 3.1 mmol/L (-2.0-2.0); BG CARBOXYHEMOGLOBIN 0.3 % (0.5-1.5); BG DEOXYHEMOGLOBIN 3.6 % (0.0-5.0); BG FRACTION INSPIRED OXYGEN 30; BG HCO3 ACT 27.2 mmol/L (22.0-26.0); BG METHEMOGLOBIN 0.2 % (0.0-1.5); BG OXYGEN SATURATION 96.4 % (92.0-98.5); BG OXYHEMOGLOBIN 95.9 % (94.0-97.0); BG PCO2 39.6 mmHg (35.0-45.0); BG PH 7.454 (7.350-7.450); BG SAMPLE SITE RIGHT RADIAL; BG TOTAL HEMOGLOBIN 11.8 g/dL (12.0-18.0); BG VENT MODE VENT - CPAP
[2021-11-19] MEDS ORDERED: SODIUM POLYSTYRENE SULFONATE 15 G/60 ML BOT PO SCH (14:00)
[2021-11-19] MEDS: SODIUM CHLORIDE 0.45% 1,000 ML IV SCH ×2 (14:20→16:12)
[2021-11-20] VITALS (54 sets, daily range): BP systolic 80–188; BP diastolic 52–108
[2021-11-20] MEDS: IPRATROPIUM/ALBUTEROL 0.5-3(2.5)MG/3ML NEB HHN SCH ×6 (00:18→20:20)
[2021-11-20] MEDS: SODIUM CHLORIDE 0.45% 1,000 ML IV SCH ×2 (02:47→21:38)
[2021-11-20] MEDS: BLOOD SUGAR DIAGNOSTIC STRIP TEST SCH ×4 (05:19→23:19)
[2021-11-20] MEDS: INSULIN LISPRO 100 UNITS/ML SUBCUT SCH ×4 (05:20→23:34)
[2021-11-20] MEDS: METHYLPREDNISOLONE SOD SUCC 125 MG/2 ML VIAL IV SCH ×2 (05:25→13:11)
[2021-11-20] MEDS: CLONIDINE 0.1MG TABLET NG PRN ×3 (05:26→23:28)
[2021-11-20] MEDS: ACETAMINOPHEN 325MG TABLET NG PRN (05:26)
[2021-11-20 05:38] LABS: CHLORIDE 110 mEq/L (98-107)
[2021-11-20 05:46] LABS: PHOSPHORUS 3.2 mg/dL (2.5-4.9)
[2021-11-20 05:47] LABS: HEMOGLOBIN. 11.5 g/dL (12.0-16.0); MEAN CORPUSCULAR HEMOGLOBIN 29.9 pg (28.0-32.0); MEAN CORPUSCULAR VOLUME 91.2 fL (81.0-99.0); MEAN PLATELET VOLUME 8.4 fl (7.4-10.4); PLATELET 213 x1000/uL (130-400); RED BLOOD CELL COUNT 3.84 mill/uL (4.2-5.4); RED CELL DISTRIBUTION WIDTH 15.5 % (11.6-14.6)
[2021-11-20] MEDS: MEROPENEM 1,000 MG in SODIUM CHLORIDE 0.9% 100 ML IV SCH ×2 (07:54→20:23)
[2021-11-20] MEDS: LACOSAMIDE 100 MG TABLET PO SCH ×2 (07:55→16:15)
[2021-11-20] MEDS: ATOVAQUONE 750 MG/5 ML ORAL.SUSP NG SCH (07:55)
[2021-11-20] MEDS: TOPIRAMATE 25MG TABLET PO SCH ×2 (07:55→16:15)
[2021-11-20] MEDS: FAMOTIDINE 20MG/2ML VIAL IV SCH (07:55)
[2021-11-20] MEDS: RITONAVIR 100 MG TABLET NG SCH ×2 (07:55→16:15)
[2021-11-20] MEDS: ENOXAPARIN 40MG/0.4ML SYR SUBCUT SCH (07:55)
[2021-11-20] MEDS: PREZISTA 600 MG PO SCH ×2 (07:56→16:15)
[2021-11-20] MEDS: JULUCA PO SCH (07:56)
[2021-11-20] MEDS: LORATADINE 10MG TABLET PO SCH (07:56)
[2021-11-20] MEDS: HYDRALAZINE 20MG/ML VIAL IV PRN ×2 (07:57→20:51)
[2021-11-20 08:20] LABS: NUCLEATED RED BLOOD CELLS 1 /100 WBC; PLATELET ESTIMATE NORMAL
[2021-11-20] MEDS: AMLODIPINE 5MG TABLET PO SCH (13:11)
[2021-11-20] MEDS ORDERED: METHYLPREDNISOLONE SOD SUCC 40 MG/ML VIAL IV SCH (14:15)
[2021-11-20] MEDS ORDERED: VANCOMYCIN 1 G PREMIX 200 ML IV SCH (21:00)
[2021-11-20] MEDS: METHYLPREDNISOLONE SOD SUCC 40 MG/ML VIAL IV SCH (21:38)
[2021-11-21] VITALS (23 sets, daily range): BP systolic 117–187; BP diastolic 68–105
[2021-11-21] MEDS: IPRATROPIUM/ALBUTEROL 0.5-3(2.5)MG/3ML NEB HHN SCH ×4 (00:15→17:45)
[2021-11-21] MEDS: HYDRALAZINE 20MG/ML VIAL IV PRN ×3 (04:23→13:37)
[2021-11-21] MEDS: SODIUM CHLORIDE 0.45% 1,000 ML IV SCH (05:45)
[2021-11-21] MEDS: BLOOD SUGAR DIAGNOSTIC STRIP TEST SCH ×3 (06:00→18:09)
[2021-11-21 06:35] LABS: BASOPHILS % 0.1 % (0.0-2.0); EOSINOPHILS % 0.1 % (0.0-5.0); HEMATOCRIT. 34.2 % (36.0-48.0); LYMPHOCYTES % 7.1 % (20.0-50.0); MEAN CORPUSCULAR HEMOGLOBIN 29.2 pg (28.0-32.0); MEAN CORPUSCULAR VOLUME 90.5 fL (81.0-99.0); MEAN PLATELET VOLUME 8.2 fl (7.4-10.4); MONOCYTES % 11.3 % (2.0-8.0); NEUTROPHILS % 81.4 % (40.0-76.0); PLATELET 209 x1000/uL (130-400); RED BLOOD CELL COUNT 3.78 mill/uL (4.2-5.4); RED CELL DISTRIBUTION WIDTH 14.9 % (11.6-14.6)
[2021-11-21 06:45] LABS: CHLORIDE 110 mEq/L (98-107)
[2021-11-21 06:52] LABS: PHOSPHORUS 2.4 mg/dL (2.5-4.9)
[2021-11-21] MEDS: INSULIN LISPRO 100 UNITS/ML SUBCUT SCH ×3 (07:00→18:11)
[2021-11-21] MEDS: LORATADINE 10MG TABLET PO SCH (08:44)
[2021-11-21] MEDS: TOPIRAMATE 25MG TABLET PO SCH ×2 (08:44→18:09)
[2021-11-21] MEDS: METHYLPREDNISOLONE SOD SUCC 40 MG/ML VIAL IV SCH ×2 (08:44→21:24)
[2021-11-21] MEDS: ENOXAPARIN 30MG/0.3ML SYR SUBCUT SCH ×2 (08:44→21:23)
[2021-11-21] MEDS: FAMOTIDINE 20MG/2ML VIAL IV SCH (08:45)
[2021-11-21] MEDS: AMLODIPINE 5MG TABLET PO SCH ×2 (08:45→21:23)
[2021-11-21] MEDS: LACOSAMIDE 100 MG TABLET PO SCH ×2 (08:45→18:09)
[2021-11-21] MEDS: RITONAVIR 100 MG TABLET NG SCH ×2 (09:12→18:09)
[2021-11-21] MEDS: JULUCA PO SCH (09:12)
[2021-11-21] MEDS: PREZISTA 600 MG PO SCH ×2 (09:13→18:08)
[2021-11-21] MEDS: MEROPENEM 1,000 MG in SODIUM CHLORIDE 0.9% 100 ML IV SCH ×2 (09:14→21:23)
[2021-11-21] MEDS: ATOVAQUONE 750 MG/5 ML ORAL.SUSP NG SCH (09:28)
[2021-11-21] MEDS: VANCOMYCIN 1250MG in DEXTROSE 5% WATER 250ML IV SCH (11:55)
[2021-11-21] MEDS ORDERED: POTASSIUM CHLORIDE 20MEQ/PACKET PO NR (14:15)
[2021-11-21] MEDS ORDERED: POTASSIUM-SODIUM PHOSPHATE POWDER PACKET PO NR (14:15)
[2021-11-21] MEDS: DEXT 5% WATER + KCL 20MEQ/L 1,000 ML IV SCH (15:15)
[2021-11-22] VITALS (12 sets, daily range): BP systolic 139–173; BP diastolic 77–95
[2021-11-22] MEDS: HYDRALAZINE 20MG/ML VIAL IV PRN ×2 (00:25→06:06)
[2021-11-22] MEDS: INSULIN LISPRO 100 UNITS/ML SUBCUT SCH ×4 (00:36→18:00)
[2021-11-22] MEDS: BLOOD SUGAR DIAGNOSTIC STRIP TEST SCH ×4 (00:37→17:43)
[2021-11-22] MEDS: CLONIDINE 0.1MG TABLET NG PRN (02:06)
[2021-11-22] MEDS: DEXT 5% WATER + KCL 20MEQ/L 1,000 ML IV SCH (03:32)
[2021-11-22] MEDS: ACETAMINOPHEN 325MG TABLET NG PRN ×3 (03:32→14:50)
[2021-11-22] MEDS: VANCOMYCIN 1250MG in DEXTROSE 5% WATER 250ML IV SCH (05:53)
[2021-11-22 07:20] LABS: CHLORIDE 108 mEq/L (98-107)
[2021-11-22] MEDS: IPRATROPIUM/ALBUTEROL 0.5-3(2.5)MG/3ML NEB HHN SCH ×4 (08:03→21:14)
[2021-11-22 08:09] LABS: *CREATININE RANDOM URINE 78.4 mg/dL (Not Estab.); MICROALBUMIN RANDOM URINE 31.4 ug/mL (Not Estab.)
[2021-11-22] MEDS ORDERED: DEXTROSE 5% WATER 1,000 ML IV SCH (09:00)
[2021-11-22] MEDS: JULUCA PO SCH (09:15)
[2021-11-22] MEDS: RITONAVIR 100 MG TABLET NG SCH ×2 (09:15→17:42)
[2021-11-22] MEDS: PREZISTA 600 MG PO SCH ×2 (09:15→17:42)
[2021-11-22] MEDS: ATOVAQUONE 750 MG/5 ML ORAL.SUSP NG SCH (09:16)
[2021-11-22] MEDS: ENOXAPARIN 30MG/0.3ML SYR SUBCUT SCH ×2 (09:18→21:12)
[2021-11-22] MEDS: METHYLPREDNISOLONE SOD SUCC 40 MG/ML VIAL IV SCH (09:18)
[2021-11-22] MEDS: AMLODIPINE 5MG TABLET PO SCH ×2 (09:19→21:12)
[2021-11-22] MEDS: TOPIRAMATE 25MG TABLET PO SCH ×2 (09:19→17:43)
[2021-11-22] MEDS: LORATADINE 10MG TABLET PO SCH (09:19)
[2021-11-22] MEDS: LACOSAMIDE 100 MG TABLET PO SCH ×2 (09:20→17:43)
[2021-11-22] MEDS: FAMOTIDINE 20MG/2ML VIAL IV SCH (09:20)
[2021-11-22] MEDS: MEROPENEM 1,000 MG in SODIUM CHLORIDE 0.9% 100 ML IV SCH (09:50)
[2021-11-22] MEDS ORDERED: SODIUM PHOS,M-BASIC-D-BASIC 15 MM in DEXT 5% WATER 245 ML IV NR (11:00)
[2021-11-23] MEDS ORDERED: METHYLPREDNISOLONE SOD SUCC 40 MG/ML VIAL IV SCH (09:00)
== END 2021-11-22 23:11 | disposition short-term general hospital (02) | DRG 890 ==
LOC: ER 00:25 → EDBD 00:25 → CVICU 01:05 → ENRESERV 10:12 → 5EST 11-21 06:17
PROVIDERS: ADMIT Internal Medicine; ATTEND Internal Medicine
PROC: 5A1955Z Respiratory Ventilation, Greater than 96 Consecutive Hours (ICD-10-PCS; principal; 2021-11-13)
PROC: 5A12012 Performance of Cardiac Output, Single, Manual (ICD-10-PCS; 2021-11-13)
PROC: 02HV33Z Insertion of Infusion Device into Superior Vena Cava, Percutaneous Approach (ICD-10-PCS; 2021-11-13)
PROC: B548ZZA Ultrasonography of Superior Vena Cava, Guidance (ICD-10-PCS; 2021-11-13)
PROC: 0BH17EZ Insertion of Endotracheal Airway into Trachea, Via Natural or Artificial Opening (ICD-10-PCS; 2021-11-13)
PROC: 0BH17EZ Insertion of Endotracheal Airway into Trachea, Via Natural or Artificial Opening (ICD-10-PCS; 2021-11-14)
DX: A41.9 Sepsis, unspecified organism (principal); B20 Human immunodeficiency virus [HIV] disease; J96.01 Acute respiratory failure with hypoxia; I46.9 Cardiac arrest, cause unspecified; N17.0 Acute kidney failure with tubular necrosis; R65.21 Severe sepsis with septic shock; G93.41 Metabolic encephalopathy; D72.10 Eosinophilia, unspecified; J18.9 Pneumonia, unspecified organism; E11.9 Type 2 diabetes mellitus without complications; D64.9 Anemia, unspecified; J45.901 Unspecified asthma with (acute) exacerbation; G40.909 Epilepsy, unspecified, not intractable, without status epilepticus; I10 Essential (primary) hypertension; E78.00 Pure hypercholesterolemia, unspecified; E78.5 Hyperlipidemia, unspecified; E87.6 Hypokalemia; Z60.2 Problems related to living alone; E87.5 Hyperkalemia; N20.0 Calculus of kidney; Z20.822 Contact with and (suspected) exposure to COVID-19; R74.01 Elevation of levels of liver transaminase levels; R74.8 Abnormal levels of other serum enzymes; R79.89 Other specified abnormal findings of blood chemistry; J44.0 Chronic obstructive pulmonary disease with (acute) lower respiratory infection; Z87.891 Personal history of nicotine dependence; Z79.899 Other long term (current) drug therapy
CPT/HCPCS: 36415; 36600; 71045; 71275; 74176; 76937; 80048; 80053; 80202; 80305; 80320; 80339; 81003; 82043; 82375; 82570; 82805; 82962; 83036; 83605; 83735; 83880; 83935; 84100; 84145; 84300; 84478; 84484; 85025; 85379; 86359; 86360; 86850; 86900; 87070; 87426; 87804; 93005; 93970; 94003; 94640; 97162; 97167; 99291; C1725; C1769; C1893; J0330; J0360; J1650; J1815; J1956; J2185; J2250; J2543; J2704; J2920; J2930; J3010; J3370; J3475; J3480; J3490; J7030; J7050; J7060; J7070; Q9967; A4315; G0480